=== PATIENT | female | born 1940 | race Caucasian/White ===

== ENCOUNTER 2021-04-25 09:51 | Outpatient (CLI) | payer MEDICARE, BC ==
[2021-04-25 11:39] LABS: Hemoglobin 12.7 g/dL (12.0-15.5)
[2021-04-25 11:57] LABS: Anion Gap 13 mmol/L (10-20); BUN (Urea Nitrogen) 13 mg/dL (9.8-20.1); Calc. Creatinine Clearance 0 mL/min (70-130); Carbon Dioxide 27 mmol/L (23-31); Chloride 104 mmol/L (98-107); Glucose 91 mg/dL (83-110); Potassium 4.5 mmol/L (3.5-5.1); Sodium 139 mmol/L (136-145)
[2021-04-25 18:52] LABS: SARS-CoV-2 PCR by NAA Not Detected (NotDetected)
== END 2021-04-25 09:52 | disposition home or self-care (01) ==
LOC: CSHLAB 09:51
PROVIDERS: ATTEND Otolaryngology Plastic Surgery within the Head & Neck
DX: Z01.818 Encounter for other preprocedural examination (principal); Z20.822 Contact with and (suspected) exposure to COVID-19; R59.0 Localized enlarged lymph nodes
CPT/HCPCS: 71046; 80048; 85014; 85018; 93005; 93010; U0003; U0005

== ENCOUNTER 2021-04-30 10:21 | Day surgery (SDC) | payer MEDICARE, BC ==
[2021-04-25 09:02] VITALS: BMI 21.7
[2021-04-30] MEDS ORDERED: Lidocaine 1% MPF 2 ML VIAL ONE (11:47)
[2021-04-30] MEDS ORDERED: Ondansetron PF 4 MG/2 ML Vial ONE (13:56)
[2021-04-30] MEDS ORDERED: Fentanyl 100 MCG/2 ML VIAL ONE (13:56)
[2021-04-30] MEDS ORDERED: PROPOFOL 20 ML ONE ×2 (13:56→13:57)
== END 2021-04-30 15:43 | disposition home or self-care (01) ==
LOC: CSHSDC 10:21
PROVIDERS: ATTEND Otolaryngology Plastic Surgery within the Head & Neck
DX: I88.9 Nonspecific lymphadenitis, unspecified (principal); Z79.899 Other long term (current) drug therapy; I10 Essential (primary) hypertension; Z87.891 Personal history of nicotine dependence
CPT/HCPCS: 88184; 88305; 88341; 88342; J2405; J2704; J3010

== ENCOUNTER 2023-07-25 09:45 | Outpatient (CLI) | payer MEDICARE | END 2023-07-25 09:46 | disposition home or self-care (01) | LOC: CSHMAMMO 09:45 | PROVIDERS: ATTEND Internal Medicine | DX: Z12.31 Encounter for screening mammogram for malignant neoplasm of breast (principal) | CPT/HCPCS: 77063; 77067 ==